=== PATIENT | female | born 1960 | race African-American/Black ===

== ENCOUNTER 2022-07-21 16:11 | Emergency (ER) | payer BC, OTHER ==
[~2022-07-21] VITALS: Ht 157.5 cm; Wt 74.4 kg
--- NOTE | 2022-07-21 16:15 | NUR ---
BIB C/O SOB, SHARP CHEST PAIN, R SHOULDER PAIN, DIZZINESS, PALPITATIONS, AND LOSS OF APPETITE X 3 DAYS. AAOX4, BREATHING EVEN AND UNLABORED, PULSES 2+ BILATERALLY. ON MONITOR, HR 104. POX 100% ON ROOM AIR. WILL CONTINUE TO MONITOR.
--- NOTE | 2022-07-21 16:45 | NUR ---
BLOOD SAMPLE OBTAINED AND SENT TO LAB
--- NOTE | 2022-07-21 16:46 | NUR ---
COVID SAMPLE OBTAINED AND SENT TO LAB
[2022-07-21] MEDS ORDERED: LORAZEPAM INJ 2 MG/ML VIAL IV ONE (17:00)
[2022-07-21 17:11] LABS: BASOPHILS % (AUTO) 0.6 % (0.0-2.0); EOSINOPHILS % (AUTO) 0.1 % (0.0-6.0); HEMATOCRIT 43 % (33-45); HEMOGLOBIN 14.6 g/dL (11.5-14.8); LYMPHOCYTES # (AUTO) 2.2 K/uL (0.8-4.8); LYMPHOCYTES % (AUTO) 28.9 % (20.0-44.0); MEAN CORPUSCULAR HGB CONC 34 g/dl (31.0-36.0); MEAN CORPUSCULAR VOLUME 90 fL (82-100); MONOCYTES # (AUTO) 0.7 K/uL (0.1-1.30); MONOCYTES % (AUTO) 8.6 % (2.0-12.0); NEUTROPHILS # (AUTO) 4.7 K/uL (1.8-8.9); NEUTROPHILS % (AUTO) 61.8 % (43.0-81.0); PLATELET COUNT (AUTO) 379 K/uL (150-450); RED BLOOD CELL COUNT(AUTO) 4.81 MIL/uL (4.0-5.2); WHITE BLOOD COUNT (AUTO) 7.6 K/uL (4.3-11.0)
[2022-07-21 18:03] LABS: CALCIUM, SERUM 9.8 mg/dL (8.5-10.1); CARBON DIOXIDE 24 mmol/L (21-32); CHLORIDE 99 mmol/L (98-107); CREATININE 1.3 mg/dL (0.6-1.3); GLUCOSE 109 mg/dL (74-106); POTASSIUM 3.5 mmol/L (3.5-5.1); SODIUM SERUM 137 mmol/L (136-145); UREA NITROGEN, BLOOD 17 mg/dL (7-18)
[2022-07-21] MEDS ORDERED: LORAZEPAM INJ 2 MG/ML VIAL ONE (18:07)
--- NOTE | 2022-07-21 21:38 | NUR ---
Patient discharged to home in stable condition. Written and verbal after care instructions given. Patient verbalizes understanding of instruction. IV removed. Catheter intact and site benign. Pressure and 4x4 applied to site. No bleeding noted. pt ambulatory with a steady gait
[2022-07-21 21:39] VITALS: BP 95/54
== END 2022-07-21 21:39 | disposition home or self-care (01) ==
LOC: ER 16:24
DX: R06.02 Shortness of breath (principal); R07.9 Chest pain, unspecified; Z20.822 Contact with and (suspected) exposure to COVID-19; R00.0 Tachycardia, unspecified; I10 Essential (primary) hypertension; M06.9 Rheumatoid arthritis, unspecified
CPT/HCPCS: 99285; 96374; 71045; 87426; 93005; 85025; 80048; 85378; 36415; 84484 ×2; J2060; C9803